=== PATIENT | female | born 1960 | race Caucasian/White ===

== ENCOUNTER → 2017-03-10 | Outpatient (CLI) | payer BC, OTHER ==
--- NOTE | 2017-03-11 08:34 | USB ---
Reason for exam: follow-up at short interval from prior study. History: Patient has history of other cancer at age 48 and had first child at age 30. Family history of breast cancer in maternal cousin at age 60. Took hormonal contraceptives for 15 years beginning at age 18. Physical Findings: Nurse Summary: left breast 1 o'clock palpable 0.5 x 1cm, movable. Left breast 8 o'clock subcutaneous area 1 x 1cm (nurse ts). US Breast LT Left breast ultrasound includes all four quadrants, the retroareolar region and axilla. Finding demonstrates a 0.4 x 0.5 x 0.4cm oval, cystic, benign lesion at 5 o'clock, a 0.8 x 0.8 x 0.5cm oval, mixed lesion at 8 o'clock versus 6 x 7 x 5mm previously, slightly enlarged but continues to involve the deep surface of the skin suggestive of the clinically apparent sebaceous cyst, and benign dilated ducts at the posterior nipple, prominent, benign appearing axillary lymph node. These results were verbally communicated with the patient and result sheet given to the patient on 03/10/17. ASSESSMENT: Benign, BI-RAD 2 RECOMMENDATION: Routine screening mammogram of both breasts in 6 months. Back on schedule. Manage patient on a clinical basis. (8 o'clock sebaceous cyst. Surgical consultation can be considered for excision if symptomatic).
== END ==
LOC: RADUSWWP 15:12
PROVIDERS: ATTEND Family Medicine
DX: R92.8 Other abnormal and inconclusive findings on diagnostic imaging of breast (principal)

== ENCOUNTER → 2017-10-22 | Outpatient (CLI) | payer BC, OTHER ==
--- NOTE | 2017-10-22 09:58 | BD ---
EXAMINATION TYPE: MG DEXA axial skeleton. DATE OF EXAM: 10/22/2017 COMPARISON: DEXA bone scan October 13, 2015 CLINICAL HISTORY: Postmenopausal female Height: 5 FT 9 IN Weight: 187 FRAX RISK QUESTIONS: Alcohol (3 or more units per day): NO Family History (Parent hip fracture): YES Glucocorticoids (More than 3mos): NO (Ex: prednisone, prednisolone, methylprednisolone, dexamethasone, and hydrocortisone). History of Fracture in Adulthood: YES Secondary Osteoporosis: 1. Type 1 Diabetes: NO 2. Hyperthyroidism: NO 3. Menopause before 45: NO 4. Malnutrition: NO 5. Chronic liver disease: NO Rheumatoid Arthritis: NO Current Tobacco Use: NO RISK FACTORS HISTORY OF: Spine Fracture: YES When: 2017 Family History of Osteoporosis: YES Active: YES Postmenopausal woman: AGE 55 MEDICATIONS: Additional Medications: CALTRATE, CRESTOR,MUSCLE RELAXER, Additional History: EXAM MEASUREMENTS: Bone mineral densitometry was performed using the [employer] System. Bone mineral density as measured about the Lumbar spine is: ----- L1-L4(G/cm2): 1.408 T Score Values are as follows: ----- L2: 0.5 ----- L3: 2.5 ----- L4: 1.3 ----- L1-L4: 1.9 Bone mineral density has: DECREASED -3.6% since study of: 2014 Bone mineral density about the R hip (g/cm2): 0.946 Bone mineral density about the L hip (g/cm2): 0.948 T Score values are as follows: -----R Neck: -0.7 -----L Neck: -0.6 -----R Total: 0.0 -----L Total: Bone mineral density has: DECREASED -2.9 % since study of: 2014 IMPRESSION: Normal (Values between +1 and -1 indicate normal bone mass). Consider repeating this study in 5 year s or sooner if there is some new clinical indication. NOTE: T-SCORE=SD OF THE YOUNG ADULT MEAN.
--- NOTE | 2017-10-23 14:10 | MM ---
Reason for exam: screening (asymptomatic). Last mammogram was performed 1 year and 2 months ago. History: Patient is postmenopausal, has history of other cancer at age 48, and had first child at age 30. Family history of breast cancer in maternal cousin at age 60. Took hormonal contraceptives for 15 years beginning at age 18. Physical Findings: A clinical breast exam by your physician is recommended on an annual basis and results should be correlated with mammographic findings. MG 3D Screening Mammo W/Cad Bilateral CC and MLO view(s) were taken. Prior study comparison: September 05, 2016, bilateral MG 3d diag mammo w/cad AL[facility]. October 13, 2015, bilateral MG 3d screening mammo w/cad. The breast tissue is heterogeneously dense. This may lower the sensitivity of mammography. Finding #1: There is a 18 mm microlobulated oval mass in the lower quadrant, middle position of the right breast (MLO slice 31/91). Finding #2: There are typically benign round calcifications in both breasts. New finding since September 05, 2016 and October 13, 2015. ASSESSMENT: Incomplete: need additional imaging evaluation, BI-RAD 0 RECOMMENDATION: Ultrasound of the right breast. [facility] will attempt to contact patient to return for ultrasound.
== END | disposition home or self-care (01) ==
LOC: RADMAMWWP 07:55
PROVIDERS: ATTEND Family Medicine
DX: Z12.31 Encounter for screening mammogram for malignant neoplasm of breast (principal); Z78.0 Asymptomatic menopausal state
CPT/HCPCS: 77080; 77063; G0202

== ENCOUNTER → 2018-04-14 | Outpatient (CLI) | payer BC, OTHER ==
--- NOTE | 2018-04-14 09:20 | NM ---
EXAMINATION TYPE: NM hepatobiliary w EF DATE OF EXAM: 04/14/2018 COMPARISON: NONE HISTORY: 58-year-old female epigastric and abdominal pain TECHNIQUE: After the intravenous administration of 5.25 mCi Tc 99m Mebrofenin hepatobiliary scintigra phy is performed. Immediate images post injection. FINDINGS: There is satisfactory initial accumulation of tracer by the liver. The gallbladder is visualized wit hin 8 minutes. The small bowel activity is noted within 12 minutes. At one hour 8 ounces of oral en sure plus is given to mimic CCK and gallbladder ejection fraction is calculated at 57 %, in the nancy l range. Therefore there is no scintigraphic evidence of cystic or common bile duct obstruction to s uggest acute cholecystitis or gallbladder dyskinesia. IMPRESSION: Exam is within normal limits.
== END | disposition home or self-care (01) ==
LOC: RADNMMAIN 06:58
PROVIDERS: ATTEND Family Medicine
DX: R10.13 Epigastric pain (principal); R10.84 Generalized abdominal pain
CPT/HCPCS: 78226; A9537

== ENCOUNTER → 2018-04-16 | Outpatient (CLI) | payer BC, OTHER ==
--- NOTE | 2018-04-16 10:06 | USB ---
Reason for exam: follow-up at short interval from prior study. History: Patient is postmenopausal, has history of other cancer at age 48, and had first child at age 30. Family history of breast cancer in maternal cousin at age 60. Benign US biopsy breast VAD RT of the right breast, October 31, 2017. Benign US biopsy breast add'l VAD RT of the right breast, October 31, 2017. Took hormonal contraceptives for 15 years beginning at age 18. Physical Findings: Nurse did not find any significant physical abnormalities on exam. US Breast RT Right complete breast ultrasound includes all four quadrants, the retroareolar region and axilla. Finding demonstrates a 0.3 x 0.3 x 0.2cm oval, cystic lesion at 1 o'clock, a 0.3 x 0.5 x 0.4cm oval, irregular, complex, cystic lesion at 3 o'clock, a 0.3 x 0.3 x 0.2cm oval, mixed lesion at 6 o'clock, a 0.5 x 0.5 x 0.5cm oval, complex, cystic lesion at 6 o'clock, a 0.7 x 0.6 x 0.4cm oval, complex, cystic lesion at 8 o'clock, a 0.5 x 0.5 x 0.4cm oval, cystic lesion at 9 o'clock, a 1.0 x 1.4 x 0.3cm complex, oval lesion at 10 o'clock for which a short term follow up is recommended and a shadow near cyst at 9 o'clock. A 9 o'clock shadowing may be artifactual or related to post procedural scar. No discrete mass. Short term follow up recommended. These results were verbally communicated with the patient and result sheet given to the patient on 04/16/18. ASSESSMENT: Probably benign, BI-RAD 3 RECOMMENDATION: Ultrasound of the right breast in 3 months. (lower inner quadrant)
== END | disposition home or self-care (01) ==
LOC: RADUSWWP 08:21
PROVIDERS: ATTEND Surgery
DX: R92.8 Other abnormal and inconclusive findings on diagnostic imaging of breast (principal)

== ENCOUNTER → 2018-06-25 | Outpatient (CLI) | payer BC, OTHER ==
--- NOTE | 2018-06-25 18:06 | US ---
EXAMINATION TYPE: US abdomen complete DATE OF EXAM: 06/25/2018 COMPARISON: None CLINICAL HISTORY: 58-year-old female Dyspepsia K30. Check GB, history of liver cyst, NPO TECHNIQUE: Multiple sonographic images of the abdomen are obtained. FINDINGS: EXAM MEASUREMENTS: Liver Length: 13.9 cm Gallbladder Wall: 0.2 cm CBD: 0.3 cm CHD: 0.3 cm Spleen: 9.4 cm Right Kidney: 9.8 x 5.4 x 4.7 cm Left Kidney: 10.7 x 4.9 x 4.6 cm Pancreas: wnl Liver: Cyst within the right liver lobe measuring 1.8 x 1.6 x 1.6 cm Gallbladder: Multiple shadowing calculi are present within measuring up to 1.7 cm. Evidence for sonographic Simms's sign: neg CBD: wnl CHD: wnl Spleen: wnl Right Kidney: wnl Left Kidney: wnl Upper IVC: wnl Abd Aorta: wnl IMPRESSION: 1. Cholelithiasis with multiple shadowing calculi measuring up to 1.7 cm. No ancillary findings of ac little traverse cholecystitis. 2. Incidental 1.8 cm right hepatic lobe cyst.
== END | disposition home or self-care (01) ==
LOC: RADUSMAIN 15:38
PROVIDERS: ATTEND Family Medicine
DX: K80.20 Calculus of gallbladder without cholecystitis without obstruction (principal)
CPT/HCPCS: 76700

== ENCOUNTER → 2018-08-20 | Outpatient (CLI) | payer BC, OTHER ==
[2018-08-20 13:50] LABS: HCT 46.2 % (34.0-46.0); HGB 15.1 gm/dL (11.4-16.0); MCH 29.4 pg (25.0-35.0); MCHC 32.6 g/dL (31.0-37.0); MCV 90.3 fL (80.0-100.0); Mean Platelet Volume 7.7; Platelet Count 230 k/uL (150-450); RBC 5.11 m/uL (3.80-5.40); RDW 12.9 % (11.5-15.5); WBC 7.3 k/uL (3.8-10.6)
[2018-08-20 14:01] LABS: ALT 37 U/L (9-52); AST 29 U/L (14-36); Albumin 4.5 g/dL (3.5-5.0); Alkaline Phosphatase 51 U/L (38-126); Anion Gap 7 mmol/L; Blood Urea Nitrogen 16 mg/dL (7-17); Carbon Dioxide 28 mmol/L (22-30); Chloride 105 mmol/L (98-107); Glucose 93 mg/dL (74-99); Potassium 4.4 mmol/L (3.5-5.1); Sodium 140 mmol/L (137-145); Total Bilirubin 0.4 mg/dL (0.2-1.3); Total Protein 7.7 g/dL (6.3-8.2)
== END | disposition home or self-care (01) ==
LOC: LABWHC1 12:54
PROVIDERS: ATTEND Surgery
DX: K81.1 Chronic cholecystitis (principal)
CPT/HCPCS: 36415; 80053; 85027

== ENCOUNTER 2018-08-26 08:12 | Day surgery (SDC) | payer BC, OTHER ==
[2018-08-20 11:30] VITALS: BMI 25.0
[~2018-08-26 08:12] MED LIST: DEXAMETHASONE SOD PHOSPHATE 10 MG/ML 1 ML VIAL IV ONE; HEPARIN SODIUM,PORCINE 5,000 UNIT/ML 1 ML VIAL SQ ONE; HYDROmorphone 0.5 MG/0.5 ML SYRINGE IVP PRN; LACTATED RINGERS 1,000 ML IV SCH; MORPHINE SULFATE 2 MG/ML SYRINGE IV PRN; ONDANSETRON 4 MG/2 ML VIAL IVP ONE; ONDANSETRON 4 MG/2 ML VIAL IVP PRN; ceFAZolin IN SWFI 2 GM/20 ML SYRINGE IVP ONE
[2018-08-26] MEDS ORDERED: LIDOCAINE 1% 20 ML VIAL (10MG/ML) FOR IV START SQ ONE (08:52)
[2018-08-26] MEDS ORDERED: MIDAZOLAM 2 MG/2 ML VIAL IVP ONE (08:52)
[2018-08-26] MEDS ORDERED: LIDOCAINE 1% INJ 10MG/ML (20 ML MDV) ONE (09:42)
[2018-08-26] MEDS ORDERED: KETOROLAC 30 MG/ML 1 ML VIAL ONE (09:42)
[2018-08-26] MEDS ORDERED: PROPOFOL 10 MG/ML 20 ML VIAL IV ONE (09:42)
[2018-08-26] MEDS ORDERED: ROCURONIUM BROMIDE 10 MG/ML 10 ML VIAL IV ONE (09:42)
[2018-08-26] MEDS ORDERED: MORPHINE SULFATE 10 MG/ML SYRINGE ONE (09:42)
[2018-08-26] MEDS ORDERED: fentaNYL (PF) 50 MCG/ML 2 ML AMP ONE (09:42)
[2018-08-26] MEDS ORDERED: SUCCINYLCHOLINE CHLORIDE 100 MG/5 ML SYR IV ONE (09:42)
[2018-08-26] MEDS ORDERED: MIDAZOLAM 2 MG/2 ML VIAL ONE (09:42)
[2018-08-26] MEDS ORDERED: NEOSTIGMINE 1 MG/ML 10 ML VIAL ONE (09:42)
[2018-08-26] MEDS ORDERED: GLYCOPYRROLATE 0.2 MG/ML 2 ML VIAL ONE (09:42)
[2018-08-26] MEDS ORDERED: BUPIVACAIN-EPI 0.25%-1:200,000 30 ML VIAL SQ ONE ×2 (09:59)
[2018-08-26] MEDS ORDERED: LACTATED RINGERS 1,000 ML IV ONE (10:35)
[2018-08-26 11:04] VITALS: TEMP 97.2
[2018-08-26] MEDS ORDERED: HYDROcodone/APAP 5-325MG 1 EACH TAB PO PRN (11:07)
[2018-08-26] MEDS ORDERED: NALOXONE 0.4 MG/ML 1 ML VIAL IV PRN (11:07)
--- NOTE | 2018-08-26 11:08 | P.OP ---
Date of Procedure: 08/26/18 Procedure(s) Performed: PREOPERATIVE DIAGNOSIS: Chronic cholecystitis POSTOPERATIVE DIAGNOSIS: Same PROCEDURE: Laparoscopic cholecystectomy SURGEON: Mega EBL: Minimal see anesthesia record ANESTHESIA: Gen. COMPLICATIONS: None OPERATIVE PROCEDURE: The patient was brought and placed on the operating room table in the supine position. The patient was placed under general anesthesia at that time. The abdomen was prepped and draped in the usual sterile fashion. A small vertical infraumbilical incision was made. The fascia was grasped with the Samuel forceps. The fascia was retracted anteriorly. The Veress needle was advanced into the peritoneal cavity. The saline drop test was normal. Insufflation took place up to 15 mmHg. A 5 mm optical trocar was advanced and the peritoneal cavity. The patient had adhesions between the liver and the abdominal wall which were lysed using electrocautery. 2 additional 5 mm trochars were placed in the right upper quadrant under direct visualization. A 10 mm trocar was advanced into the epigastric incision site. The gallbladder was retracted superiorly and laterally. The peritoneum overlying the infundibulum was bluntly dissected. The patient's cystic duct was visualized. The junction between the cystic duct common and hepatic duct was identified. The cystic duct was then divided after placement of 3 10 mm clips on the patient's side and one on the specimen side. The cystic artery was identified and clipped as well. A small vessel was seen along the gallbladder fossa and clipped as well. The gallbladder was then removed from the liver bed using electrocautery. The gallbladder was then removed from the epigastric trocar site with an Endo Catch bag. The gallbladder fossa was irrigated with saline. There was no evidence of any bleeding or biliary drainage seen. The trochars were then removed. The fascia at the 10 millimeter site was closed using a Pillo-Monica 0 Vicryl stitch. The skin at all 4 sites was closed using a 4-0 Monocryl stitch. At the end of this procedure the sponge and needle counts were correct. DISPOSITION: Stable to the recovery room
[2018-08-26] MEDS ORDERED: ONDANSETRON ODT 4 MG TAB PO ONE ×2 (12:16→13:33)
[2018-08-26] MEDS ORDERED: HYDROcodone/APAP 7.5-325MG 1 EACH TAB PO ONE (13:02)
[2018-08-26 13:53] VITALS: RESP 18
[2018-08-26 14:22] VITALS: BP 145/78; PULSE 76
== END 2018-08-26 14:43 | disposition home or self-care (01) ==
LOC: OR 08:12
PROVIDERS: ATTEND Surgery
DX: K80.10 Calculus of gallbladder with chronic cholecystitis without obstruction (principal); K66.0 Peritoneal adhesions (postprocedural) (postinfection); E78.5 Hyperlipidemia, unspecified; Z79.1 Long term (current) use of non-steroidal anti-inflammatories (NSAID); Z79.891 Long term (current) use of opiate analgesic; Z79.52 Long term (current) use of systemic steroids; Z79.899 Other long term (current) drug therapy
CPT/HCPCS: 47562; 88304; J2250; J1644; J1100; J2710; J2270; J2405; J2001; J3010; J1885; J0330; J2704; J0690

== ENCOUNTER → 2018-11-13 | Outpatient (CLI) | payer BC, OTHER ==
--- NOTE | 2018-11-26 13:18 | MM ---
Reason for exam: additional evaluation requested from prior study. Last mammogram was performed 1 year and 1 month ago. History: Patient is postmenopausal, has history of other cancer at age 48, and had first child at age 30. Family history of breast cancer in maternal cousin at age 60. Benign US biopsy breast VAD RT of the right breast, October 31, 2017. Benign US biopsy breast add'l VAD RT of the right breast, October 31, 2017. Took hormonal contraceptives for 15 years beginning at age 18. Taking progesterone. Physical Findings: Nurse did not find any significant physical abnormalities on exam. MG 3D Diag Mammo W/Cad ALICIA Bilateral CC and MLO view(s) were taken. Prior study comparison: October 22, 2017, bilateral MG 3d screening mammo w/cad. September 05, 2016, bilateral MG 3d diag mammo w/cad ALICIA. The breast tissue is heterogeneously dense. This may lower the sensitivity of mammography. There is a right lower central middle depth mass that appears smaller than in 2016. Benign appearing bilateral calcifications. No suspicious abnormality. These results were verbally communicated with the patient and result sheet given to the patient on 11/13/18. ASSESSMENT: Benign, BI-RAD 2 RECOMMENDATION: Routine screening mammogram of both breasts in 1 year.
== END | disposition home or self-care (01) ==
LOC: RADMAMWWP 09:47
PROVIDERS: ATTEND Surgery
DX: R92.8 Other abnormal and inconclusive findings on diagnostic imaging of breast (principal)
CPT/HCPCS: 77062; 77066

== ENCOUNTER → 2019-11-15 | Outpatient (CLI) | payer BC, OTHER ==
--- NOTE | 2019-11-19 12:43 | MM ---
Reason for exam: screening (asymptomatic). Last mammogram was performed 1 year ago. History: Patient is postmenopausal, has history of other cancer at age 48, and had first child at age 30. Family history of breast cancer in maternal cousin at age 60. Benign US biopsy breast VAD RT of the right breast, October 31, 2017. Benign US biopsy breast add'l VAD RT of the right breast, October 31, 2017. Took hormonal contraceptives for 15 years beginning at age 18. Taking progesterone. Physical Findings: A clinical breast exam by your physician is recommended on an annual basis and results should be correlated with mammographic findings. MG 3D Screening Mammo W/Cad Bilateral CC and MLO view(s) were taken. Prior study comparison: November 13, 2018, bilateral MG 3d diag mammo w/cad ALICIA. October 22, 2017, bilateral MG 3d screening mammo w/cad. There are benign appearing round calcifications bilaterally. There is chronic nodularity in the left breast. There is no discrete abnormality. ASSESSMENT: Benign, BI-RAD 2 RECOMMENDATION: Routine screening mammogram of both breasts in 1 year.
== END | disposition home or self-care (01) ==
LOC: RADMAMWWP 08:48
PROVIDERS: ATTEND Family Medicine
DX: Z12.31 Encounter for screening mammogram for malignant neoplasm of breast (principal)
CPT/HCPCS: 77063; 77067

== ENCOUNTER → 2020-09-13 | Outpatient (CLI) | payer BC, OTHER | END | disposition home or self-care (01) | LOC: LABWHC1 12:13 | PROVIDERS: ATTEND Internal Medicine Clinical Cardiac Electrophysiology | DX: I47.2 Ventricular tachycardia (principal); I47.1 Supraventricular tachycardia | CPT/HCPCS: 36415; 84439; 84443 ==

== ENCOUNTER → 2020-11-09 | Outpatient (CLI) | payer BC, OTHER | END | disposition home or self-care (01) | LOC: LABWHC1 11:35 | PROVIDERS: ATTEND Family Medicine | DX: Z20.828 Contact with and (suspected) exposure to other viral communicable diseases (principal) | CPT/HCPCS: 87635; C9803 ==

== ENCOUNTER → 2020-11-15 | Outpatient (CLI) | payer BC, OTHER | END | disposition home or self-care (01) | LOC: LABWHC1 13:50 | PROVIDERS: ATTEND Family Medicine | DX: Z20.828 Contact with and (suspected) exposure to other viral communicable diseases (principal) | CPT/HCPCS: U0003; C9803 ==

== ENCOUNTER → 2024-08-03 | Day surgery (SDC) | payer BC ==
[2024-07-28 10:05] VITALS: BMI 25.8
[~2024-08-03] MED LIST changes: -DEXAMETHASONE SOD PHOSPHATE 10 MG/ML 1 ML VIAL IV ONE; -HEPARIN SODIUM,PORCINE 5,000 UNIT/ML 1 ML VIAL SQ ONE; -HYDROmorphone 0.5 MG/0.5 ML SYRINGE IVP PRN; +LIDOCAINE 1% (10MG/ML) FOR IV START INTRADERMA PRN; +LIDOCAINE 1% INJ 10MG/ML (20 ML MDV) ONE; -MORPHINE SULFATE 2 MG/ML SYRINGE IV PRN; -ONDANSETRON 4 MG/2 ML VIAL IVP ONE; -ONDANSETRON 4 MG/2 ML VIAL IVP PRN; +PROPOFOL 10 MG/ML 20 ML VIAL IV ONE; -ceFAZolin IN SWFI 2 GM/20 ML SYRINGE IVP ONE
[2024-08-03 09:50] VITALS: TEMP 96.6
[2024-08-03] MEDS: IV FLUID CONTINUATION 1,000 ML IV ONE (09:52)
--- NOTE | 2024-08-03 10:24 | P.GSHP ---
History of Present Illness H&P Date: 08/03/24 Chief Complaint: Colon cancer screening 64-year-old female known to our service. Patient with last colonoscopy 8 years ago. That was normal. No bowel complaints. No family history of colon cancer. Past Medical History Past Medical History: GERD/Reflux, Hyperlipidemia, Hypertension, Osteoarthritis (OA) Additional Past Medical History / Comment(s): Hx. heart palpitations x 25 years. jul 2017 10-L1 & L3 fracture due to falling off horse. History of Any Multi-Drug Resistant Organisms: None Reported Past Surgical History: Appendectomy, Cholecystectomy, Orthopedic Surgery Additional Past Surgical History / Comment(s): COLONOSCOPY, RT KNEE SX, LT BUNIONECTOMY, LOOP RECORDER INSERTED-DEPLETED BATTERY NOW Past Anesthesia/Blood Transfusion Reactions: Family History of Problems w/ Anesthesia, Postoperative Nausea & Vomiting (PONV) Additional Past Anesthesia/Blood Transfusion Reaction / Comment(s): mom-hives PONV Type of Cardiac Device: Loop Smoking Status: Never smoker - Past Family History Father Family Medical History: Cancer Additional Family Medical History / Comment(s): prostate CA with bones Mother Family Medical History: Cancer Additional Family Medical History / Comment(s): dormant lymphoma Sister(s) Family Medical History: Cancer Additional Family Medical History / Comment(s): lymphoma eye Brother(s) Family Medical History: Cancer Additional Family Medical History / Comment(s): head Medications and Allergies Home Medications Medication Instructions Recorded Confirmed Type Calcium Carbonate/Vitamin D3 1 each PO HS 10/29/17 08/03/24 History [Caltrate 600 Plus D3 Tablet] Cholecalciferol (Vitamin D3) 50 mcg PO HS 07/28/24 08/03/24 History [Vitamin D3 (50 Mcg = 2000 Iu)] Famotidine [Pepcid] 20 mg PO DAILY PRN 07/28/24 08/03/24 History Garlic 1,000 mg PO HS 07/28/24 08/03/24 History Magnesium Oxide [Magnesium] 1,500 mg PO HS 07/28/24 08/03/24 History Rosuvastatin [Crestor] 10 mg PO HS 07/28/24 08/03/24 History Telmisartan [Micardis] 20 mg PO HS 07/28/24 08/03/24 History Allergies Allergy/AdvReac Type Severity Reaction Status Date / Time No Known Allergies Allergy Verified 08/03/24 09:45 Surgical - Exam Vital Signs Temp Pulse Resp BP Pulse Ox 96.6 F L 87 16 127/66 98 08/03/24 09:47 08/03/24 09:47 08/03/24 09:47 08/03/24 09:47 08/03/24 09:47 Physical exam: General: Well-developed, well-nourished HEENT: Normocephalic, sclerae nonicteric Abdomen: Nontender, nondistended Extremities: No edema Neuro: Alert and oriented Assessment and Plan (1) Colon cancer screening Narrative/Plan: Will proceed with colonoscopy at this time. Current Visit: Yes Status: Acute Code(s): Z12.11 - ENCOUNTER FOR SCREENING FOR MALIGNANT NEOPLASM OF COLON SNOMED Code(s): 049929638
--- NOTE | 2024-08-03 10:42 | P.PCN ---
Date of Procedure: 08/03/24 Procedure(s) Performed: PREOPERATIVE DIAGNOSIS: Colon cancer screening POSTOPERATIVE DIAGNOSIS: Normal exam PROCEDURE: Colonoscopy ANESTHESIA: MAC SURGEON: Feliciano Ayoub M.D. SPECIMENS: None ENDOSCOPIC PROCEDURE: The patient was placed on the endoscopy table in the left decubitus position. The Olympus colonoscope was inserted into the anus and passed under direct visualization to the base of the cecum. The appendiceal orifice was visualized. From that point the scope was slowly withdrawn inspecti ng all surfaces carefully. There were no neoplastic inflammatory or polypoid lesions throughout the cecum, ascending, transverse, descending, sigmoid and rectum. There was no visible diverticulosis noted. Digital rectal examination was normal. The patient was taken to the recovery room in stable condition per anesthesia guidelines. RECOMMENDATIONS: Resume diet. Repeat colonoscopy 10 years.
[2024-08-03 11:36] VITALS: RESP 16
[2024-08-03 11:50] VITALS: BP 124/83; PULSE 72
== END ==
LOC: ORWHC2ENDO 09:32
PROVIDERS: ATTEND Surgery
DX: Z12.11 Encounter for screening for malignant neoplasm of colon (principal); E78.5 Hyperlipidemia, unspecified; I10 Essential (primary) hypertension; K21.9 Gastro-esophageal reflux disease without esophagitis; M19.90 Unspecified osteoarthritis, unspecified site; Z90.49 Acquired absence of other specified parts of digestive tract; Z79.899 Other long term (current) drug therapy
CPT/HCPCS: 45378